=== PATIENT | female | born 1995 | race Two or more races ===

== ENCOUNTER 2019-10-26 03:20 | Emergency (ER) | payer MEDICAID ==
[~2019-10-26] VITALS: Ht 160 cm; Wt 56.7 kg
[2019-10-26 06:50] VITALS: BP 137/87
== END 2019-10-26 07:13 | disposition home or self-care (01) ==
LOC: ER 03:20
DX: T19.2XXA Foreign body in vulva and vagina, initial encounter (principal); W31.89XA Contact with other specified machinery, initial encounter; Y93.89 Activity, other specified; Y92.098 Other place in other non-institutional residence as the place of occurrence of the external cause; Y99.8 Other external cause status
CPT/HCPCS: 72170